=== PATIENT | female | born 1980 | race Caucasian/White ===

== ENCOUNTER 2018-11-07 21:47 | Emergency (ER) | payer MEDICAID ==
[~2018-11-07] VITALS: Ht 162.6 cm; Wt 77.4 kg
[2018-11-08] MEDS ORDERED: ACETAMINOPHEN 325MG TABLET PO ONE (03:45)
[2018-11-08 05:29] VITALS: BP 115/59
== END 2018-11-08 06:06 | disposition home or self-care (01) ==
LOC: ER 21:47
DX: R07.81 Pleurodynia (principal); J45.909 Unspecified asthma, uncomplicated; Z98.890 Other specified postprocedural states
CPT/HCPCS: 71111; 81025; 99283

== ENCOUNTER 2020-12-21 11:59 | Emergency (ER) | payer MEDICAID ==
[~2020-12-21] VITALS: Ht 162.6 cm; Wt 68.0 kg
[2020-12-21] MEDS ORDERED: DEXTL MT (14:21)
[2020-12-21] MEDS ORDERED: P EP MT (14:21)
[2020-12-21 14:37] VITALS: BP 131/71
== END 2020-12-21 14:38 | disposition home or self-care (01) ==
LOC: ER 11:59
DX: J06.9 Acute upper respiratory infection, unspecified (principal); J45.909 Unspecified asthma, uncomplicated; Z98.890 Other specified postprocedural states
CPT/HCPCS: 71045; 81025; 99283